=== PATIENT | female | born 1980 | race Caucasian/White ===

== ENCOUNTER → 2023-06-25 17:13 | Outpatient (REF) | payer BC, SELFPAY | LOC: HWWDC 17:13 | PROVIDERS: ATTENDING PHYSICIAN Nurse Practitioner Family; FAMILY PHYSICIAN Family Medicine | DX: Z12.31 Encounter for screening mammogram for malignant neoplasm of breast (principal) | CPT/HCPCS: 77063; 77067 ==

== ENCOUNTER → 2025-03-10 09:24 | Outpatient (REF) | payer BC, SELFPAY | LOC: HWWDC 09:24 | PROVIDERS: ATTENDING PHYSICIAN Student in an Organized Health Care Education/Training Program; FAMILY PHYSICIAN Family Medicine | DX: Z12.31 Encounter for screening mammogram for malignant neoplasm of breast (principal) | CPT/HCPCS: 77063; 77067 ==